=== PATIENT | male | born 1995 ===

== ENCOUNTER 2017-06-20 16:11 | Emergency (ER) | payer MEDICAID, OTHER ==
[2017-06-20 16:51] VITALS: BP 126/84; PULSE 90; RESP 16; TEMP 97.1; O2SAT 98
--- NOTE | 2017-06-20 17:00 | ED PDOC ---
Arrival/HPI - General Chief Complaint: Dental Pain Time Seen by Provider: 06/20/17 16:24 Historian: Patient EM Caveat: Acuity of Condition - History of Present Illness Narrative History of Present Illness (Text): 06/20/17 16:52 Pt is a 22 yo male with no PMH presents o the ED c/o right maxillary and eye swelling x 1 day. Pt reports that he broke a tooth 2 mnths ago on the upper canine-molar with no associated pain. Did not see a dentist as he has no insurance and did not think it was necessary. Last night he states he had mild upper gumline tenderness and right facial swelling that he iced before sleeping. Upon waking, although no pain, his right infraorbital area was swollen and took Amoxicillin 500 mg tabs x 2 that his mother had and noticed a significant decrease in swelling. Denies difficulty swallowing, eating, breathing, shortness of breath, chest pain, fever, chills, WOODS, neck pain, loss of facial muscles or numbness. Pt smokes cigarettes daily. Time/Duration: 4-6 hours Symptom Onset: Sudden Symptom Course: Worsening Quality: Pressure Severity Level: 2 Activities at Onset: Rest Context: Sitting, Home Past Medical History - Provider Review Nursing Documentation Reviewed: Yes - Travel History Have you recently traveled outside [place] w/in the past 3 mons?: No - Past History Past History: No Previous - Infectious Disease Hx of Infectious Diseases: None - Psychiatric Hx Substance Use: No Family/Social History - Physician Review Nursing Documentation Reviewed: Yes Family/Social History: Unknown Family HX Smoking Status: Light Smoker < 10 Cigarettes Daily Hx Alcohol Use: No Hx Substance Use: No Allergies/Home Meds Allergies/Adverse Reactions: Allergies No Known Allergies Allergy (Verified 06/20/17 16:47) Review of Systems - Physician Review All systems were reviewed & negative as marked: Yes - Review of Systems Systems not reviewed;Unavailable: Acuity of Condition Constitutional: Normal Eyes: Normal ENT: Normal, Other (right upper gumline and facial swelling) Respiratory: Normal Cardiovascular: Normal Gastrointestinal: Normal Genitourinary Male: Normal Musculoskeletal: Normal Skin: Normal Neurological: Normal Endocrine: Normal Hemo/Lymphatic: Normal Psychiatric: Normal Physical Exam Vital Signs Reviewed: Yes Vital Signs Temp Pulse Resp BP Pulse Ox 06/20/17 16:50 97.1 F L 90 16 126/84 98 Temperature: Afebrile Blood Pressure: Normal Pulse: Regular Respiratory Rate: Normal Appearance: Positive for: Well-Appearing, Non-Toxic, Comfortable Pain Distress: None Mental Status: Positive for: Alert and Oriented X 3 - Systems Exam Head: Present: Atraumatic, Normocephalic Pupils: Present: PERRL Extroacular Muscles: Present: EOMI Conjunctiva: Present: Normal Mouth: Present: Moist Mucous Membranes, Other (Right upper canine and molar fracture with gumline erythema and swelling, right infraorbital swelling, no reythema or point tenderness) Neck: Present: Normal Range of Motion Respiratory/Chest: Present: Clear to Auscultation, Good Air Exchange. No: Respiratory Distress, Accessory Muscle Use Cardiovascular: Present: Regular Rate and Rhythm, Normal S1, S2. No: Murmurs Abdomen: Present: Normal Bowel Sounds. No: Tenderness, Distention, Peritoneal Signs Back: Present: Normal Inspection Upper Extremity: Present: Normal Inspection. No: Cyanosis, Edema Lower Extremity: Present: Normal Inspection. No: Edema Neurological: Present: GCS=15, CN II-XII Intact, Speech Normal Skin: Present: Warm, Dry, Normal Color. No: Rashes Lymphatic: No: Cervical Adenopathy, Axillary Adenopathy, Inguinal Adenopathy, Other Psychiatric: Present: Alert, Oriented x 3, Normal Insight, Normal Concentration Medical Decision Making ED Course and Treatment: 06/20/17 17:00 Pt is a 22 yo male with no PMH presents o the ED c/o right maxillary and eye swelling x 1 day. Plan PPx abx assess and dispo Progress Note Discussed case ith Dr. Melara who advised DC w abx and dental appt f/u with [facility] Loading dose of Pen VK PO prior to dc PCN VK 250 mg x 7 days Pt VSS and ambulated well out of ER - Medication Orders Current Medication Orders: Discontinued Medications Penicillin V Potassium (Penicillin Vk Tab) 500 mg PO STAT STA PRN Reason: Protocol Stop: 06/20/17 17:22 Last Admin: 06/20/17 18:45 Dose: 500 mg Disposition/Present on Arrival - Present on Arrival Any Indicators Present on Arrival: Yes History of DVT/PE: No History of Uncontrolled Diabetes: No Urinary Catheter: No History of Decub. Ulcer: No History Surgical Site Infection Following: None - Disposition Have Diagnosis and Disposition been Completed?: Yes Diagnosis: Dental abscess Disposition: HOME/ ROUTINE Disposition Time: 18:13 Patient Plan: Discharge Condition: GOOD Discharge Instructions (ExitCare): Dental Abscess (ED) Additional Instructions: Dear Slim, Please take the medication as directed and follow up with the following dental office as soon as possible. Should you have a sudden high fever, difficulty swallowing and breathing, return to the ER immediately. Dental Office at [facility] Address: [address] [place] [id number] Location: The Dental Office is in the Physician Office Building [address], located next to [facility] Hours: Thursday-Thursday 8:30 a.m. - 5:00 p.m. Prescriptions: Penicillin VK [Penicillin VK Tab] 250 mg PO Q6H 7 Days #28 tab Forms: [employer] (Kazakh)
== END 2017-06-20 20:25 | disposition home or self-care (01) ==
LOC: ED 16:11
DX: K04.7 Periapical abscess without sinus (principal)